=== PATIENT | female | born 1985 | race Caucasian/White ===

== ENCOUNTER 2018-01-02 10:16 | Emergency (ER) | payer MEDICAID ==
[~2018-01-02] VITALS: Ht 170.2 cm; Wt 120.0 kg
[2018-01-02] MEDS ORDERED: TRAM50TA2 PO (14:31)
[2018-01-02] MEDS ORDERED: NAPR-56 PO (14:31)
[2018-01-02] MEDS ORDERED: methylPREDNISolone acetate 80mg/ml inj**IM only IM ONE (14:35)
[2018-01-02] MEDS ORDERED: ketorolac trometh. 30mg/ml inj. IM ONE (14:35)
[2018-01-02] MEDS ORDERED: dexamethasone sod phosphate 10mg/ml inj IM STA (15:24)
[2018-01-02 15:51] VITALS: BP 146/72
== END 2018-01-02 15:58 | disposition home or self-care (01) ==
LOC: ER 10:17
DX: G56.03 Carpal tunnel syndrome, bilateral upper limbs (principal); Z79.899 Other long term (current) drug therapy
CPT/HCPCS: 96372; 99284; J1100; J1885; J1040

== ENCOUNTER 2018-05-06 13:01 | Emergency (ER) | payer MEDICAID | END 2018-05-06 16:02 | disposition left against medical advice (07) | LOC: ER 13:03 | DX: F41.9 Anxiety disorder, unspecified (principal); R45.4 Irritability and anger | CPT/HCPCS: 99283 ==

== ENCOUNTER 2018-08-07 19:29 | Emergency (ER) | payer MEDICAID ==
[~2018-08-07] VITALS: Ht 170.2 cm; Wt 107.3 kg
[2018-08-07] MEDS ORDERED: ibuprofen tablet 400 MG TABLET PO ONE (21:30)
[2018-08-07 21:36] VITALS: BP 138/72
== END 2018-08-07 21:39 | disposition home or self-care (01) ==
LOC: ER 19:30
DX: S93.402A Sprain of unspecified ligament of left ankle, initial encounter (principal); W22.8XXA Striking against or struck by other objects, initial encounter; Y93.89 Activity, other specified; Y92.89 Other specified places as the place of occurrence of the external cause; Y99.8 Other external cause status
CPT/HCPCS: 73610; 99284

== ENCOUNTER 2018-10-30 12:37 | Emergency (ER) | payer MEDICAID ==
[~2018-10-30] VITALS: Ht 170.2 cm; Wt 102.0 kg
--- NOTE | 2018-10-30 12:59 | NUR ---
PT WAS ESCORTED BY SECURITY AND LABEL CUTTER BACK TO ER OVERFLOW AND PLACED IN ROOM 20, PT WAS UPSET AND CRYING, PT HAS A CRISIS CLINITIAN WITH HER
[2018-10-30] MEDS ORDERED: quetiapine 100mg tablet PO ONE (13:20)
[2018-10-30] MEDS ORDERED: LORazepam 2 mg/ml vial IM ONE (13:20)
--- NOTE | 2018-10-30 13:21 | NUR ---
LAB ISWITH PT DRAWING BLOOD, PT IS CO OPERATIVE BUT RANDOMLY HYSTERICALLY CRYING AND CURSING
[2018-10-30 13:35] LABS: BASOPHILS % (AUTO) 0.3 % (0-1); EOSINOPHILS # (AUTO) 0.1 X10'3 (0-0.9); HEMATOCRIT 46.8 % (35.0-45.0); HEMOGLOBIN 15.4 g/dl (12.0-16.0); LYMPHOCYTES # (AUTO) 2.7 X10'3 (1.1-4.8); LYMPHOCYTES % (AUTO) 20.7 % (21-51); MEAN CORPUSCULAR HEMOGLOBIN 28.5 PG (27.0-31.0); MEAN CORPUSCULAR VOLUME 86.4 FL (78-98); MEAN PLATELET VOLUME 8.6 FL (7.4-10.4); MONOCYTES # (AUTO) 0.4 X10'3 (0-0.9); MONOCYTES % (AUTO) 3.4 % (2-12); NEUTROPHILS # (AUTO) 9.7 X10'3 (1.8-7.7); NEUTROPHILS % (AUTO) 74.6 % (42-75); PLATELET COUNT 386 X10'3 (140-440); RED BLOOD COUNT 5.41 X10'6 (4.20-5.60); RED CELL DISTRIBUTION WIDTH 14.9 % (11.5-14.5); WHITE BLOOD COUNT 12.9 X10'3 (4.5-11.0)
[2018-10-30 13:53] LABS: ALANINE AMINOTRANSFERASE 23 U/L (12-78); ALBUMIN 3.7 G/DL (3.4-5.0); ALBUMIN/GLOBULIN RATIO 0.8 (1.1-1.5); ALKALINE PHOSPHATASE 90 IU/L (46-116); ANION GAP 14 (8-16); ASPARTATE AMINO TRANSFERASE 13 U/L (10-37); BILIRUBIN,TOTAL 0.4 MG/DL (0.1-1.0); BLOOD UREA NITROGEN 12 MG/DL (7-18); CHLORIDE 101 MMOL/L (99-107); GLUCOSE 87 MG/DL (70-104); POTASSIUM 4.2 MMOL/L (3.5-5.1); SODIUM 137 MMOL/L (135-145); TOTAL CARBON DIOXIDE 21.8 MMOL/L (24-32); TOTAL PROTEIN 8.4 G/DL (6.4-8.2); eGFR 82 ML/MIN
[2018-10-30 14:02] LABS: ETHANOL < 0.010 GM/DL (0.0-0.010)
[2018-10-30] MEDS ORDERED: buprenorphine/naloxone 8mg/2mg SL tablet SL PRN (14:05)
[2018-10-30] MEDS ORDERED: diphenhydrAMINE 50 mg/ml inj IM ONE (14:05)
[2018-10-30] MEDS ORDERED: haloperidol lactate 5mg/ml inj IM ONE (14:05)
[2018-10-30] MEDS ORDERED: nicotine 21mg patch - 24 hr TD ONE (14:20)
[2018-10-30] MEDS ORDERED: LAMO25TA PO (15:03)
[2018-10-30] MEDS ORDERED: ARIP2TAB37 PO (15:03)
[2018-10-30 15:18] LABS: CLARITY,URINE CLOUDY (Clear); COLOR,URINE YELLOW (Yellow); GLUCOSE, URINE NEGATIVE (Neg); KETONES,URINE TRACE mg/dl (Neg); LEUKOCYTE ESTERASE ,URINE LARGE (Neg); NITRITES, URINE NEGATIVE (Neg); OCCULT BLOOD,URINE NEGATIVE (Neg); PH,URINE 6.5 (4.8-8.0); PROTEIN,URINE NEGATIVE (Neg); UROBILINOGEN,URINE 0.2 E.U/dL (0.2-1.0)
[2018-10-30 15:19] LABS: UA COLLECTION TYPE CLN CATCH MIDSTREAM; URINE HCG NEGATIVE (NEG)
[2018-10-30 15:27] LABS: SQUAMOUS EPITHELIAL CELL,UR MANY /LPF (FEW); URINE AMPHETAMINE SCREEN NEGATIVE (Neg); URINE BARBITUATE SCREEN NEGATIVE (Neg); URINE BENZODIAZEPINES SCREEN NEGATIVE (Neg); URINE CANNABINOID SCREEN NEGATIVE (Neg); URINE COCAINE SCREEN NEGATIVE (Neg); URINE METHADONE SCREEN NEGATIVE (Neg); URINE OPIATE SCREEN NEGATIVE (Neg); URINE PHENCYCLIDINE SCREEN NEGATIVE (Neg)
[2018-10-30 15:28] LABS: TRICHOMONAS,URINE MANY /HPF (NEGATIVE)
--- NOTE | 2018-10-30 15:30 | NUR ---
1350 Pt refusing to change into green scrubs and wants to go outside to smoke. Pt keeps crying and yelling for the voices to stop. Security at bedside trying to assist pt in changing clothes when pt became violent and lashed out at security physically and verbally. Security was able to get pt onto the bed. Provider asked for order to help calm pt. Pt given meds at 1416. Pt restrained with 4 point restraints until she was calm. Order obtained and documentation completed for restraints. Pt is now sleeping.
[2018-10-30 15:31] LABS: WBC,URINE 50-100 /HPF (0-4)
[2018-10-30 15:32] LABS: BACTERIA,URINE 1+ /HPF (Neg); RBC,URINE 0-2 /HPF (0-2)
--- NOTE | 2018-10-30 20:16 | NUR ---
Patient awoke, ate dinner, ambulated to the bathroom. She then returned to bed and went directly to sleep.
[2018-10-30] MEDS: lamoTRIgine 25mg tablet PO SCH (21:56)
--- NOTE | 2018-10-30 21:59 | NUR ---
Patient awakens, takes Rx med and immediately returns to sleep. Patient is low fowlers in bed, in view of nursing station. Q15 minute rounding also being done for patient safety.
--- NOTE | 2018-10-31 06:55 | NUR ---
[facility] consultation initiated.
--- NOTE | 2018-10-31 07:47 | NUR ---
Patient in bed sleeping appears comfortable. Tele Psych has been called and is set up infront of patient
--- NOTE | 2018-10-31 08:20 | NUR ---
PATIENT AMBULATED TO BATHROOM
[2018-10-31] MEDS ORDERED: quetiapine 100mg tablet PO STA (08:30)
[2018-10-31] MEDS ORDERED: LORazepam 1 MG tablet PO PRN (09:50)
--- NOTE | 2018-10-31 09:55 | NUR ---
PATIENT HAD HER TEL PSYCH AND THE PRN MEDICATIONS HAVE BEEN ORDERED PER MD. PC INSTALLATION ENGINEER ALONZO LYON [phone] CHILDREN ARE IN FOSTER CARE. PATIENT IS AWARE HER CHILDREN ARE SAFE
[2018-10-31] MEDS: ziprasidone 20mg capsule PO PRN (10:03)
--- NOTE | 2018-10-31 11:13 | NUR ---
PATIENT IS RESTING IN BED. [phone] LUISANA MOTHER [phone] MANOJ FATHER
--- NOTE | 2018-10-31 12:50 | NUR ---
PATIENT WOKE AND STARTED SHOUTING ABOUT HER KIDS AND YELLING" I WANT MY STUFF! I AM LEAVING!, WHERE ARE MY KIDS". SECURITY WAS CALLED AND PATIENT WAS MEDICATED.
[2018-10-31] MEDS: LORazepam 2 mg/ml vial IM PRN (12:51)
--- NOTE | 2018-10-31 13:04 | NUR ---
PATIENT'S MOTHER CALLED AND INQUIRED IF SHE WOULD BE ABLE TO VISIT. PATIENT STATES SHE WILL BE WILLING TO SPEAK AND VISIT WITH HER MOTHER WHEN SHE ARRIVES.
--- NOTE | 2018-10-31 13:13 | NUR ---
*CORRECTION* MOTHER'S NUMBER IS: [phone]. HER NAME IS
--- NOTE | 2018-10-31 13:35 | NUR ---
PATIENT IN BED SLEEPING, APPEARS COMFORTABLE. TALKING IN HER SLEF IN HER SLEEP
--- NOTE | 2018-10-31 14:48 | NUR ---
PATIENT IN BED SLEEPING, APPEARS COMFORTABLE, I WILL CONTINUE TO MONITOR
--- NOTE | 2018-10-31 16:15 | NUR ---
PATIENTS MOTHER CAME TO THE ED I MET HER IN THE LOBBY. SHE WAS CONCERNED ABOUT THE PATIENTS STATUS. I ASSURED HER THE PATIENT IS SLEEPING AT THIS TIME. I TOLD HER THAT HER VISIT MAY UPSET THE PATIENT BECAUSE SHE IS CONCERNED ABOUT HER CHILDREN. THE MOTHER AGREED THAT THE PHONE CONVERSATION DIDNT GO WELL EARLIER AND SHE WANTS THE PATIENT TO CONTINUE TO REST. I GAVE THE MOTHER OUR PHONE NUMBER AND TOLD HER SHE COULD CALL AND CHECK ON THE PATIENT. WHEN THE PATIENT WAKES I WILL NOTIFY HER THAT HER MOTHER STOPPED BY.
--- NOTE | 2018-10-31 17:00 | NUR ---
I RECIEVED A PHONE CALL FROM PRIYA AT [facility]. THEY WILL BE CALLING BACK AFTER THEY SPEAK WITH THE MD.
[2018-10-31] MEDS: lamoTRIgine 25mg tablet PO SCH (20:32)
--- NOTE | 2018-10-31 23:29 | NUR ---
NURSE TO NURSE REPORT TO CHRISTINE AT [facility].
--- NOTE | 2018-11-01 07:30 | NUR ---
Patient is sleeping supine in bed. Respirations are nonlabored.
--- NOTE | 2018-11-01 09:52 | NUR ---
Patient awoke and ate breakfast. Awakened her for a.m. meds and patient started yelling. When can I leave, I want my keys... Patient now crying in bed. Will continue to monitor.
[2018-11-01] MEDS: LORazepam 0.5 MG tablet PO PRN ×2 (10:25→20:03)
[2018-11-01] MEDS: ziprasidone 20mg capsule PO PRN (10:25)
--- NOTE | 2018-11-01 10:29 | NUR ---
Patient became loud on unit stating she needed to leave and would not go back to room. Security called. Medicated with 2 mg Ativan and 20 mg Geodon. Patient talking to female physical security manager, crying softly. Will continue to monitor.
--- NOTE | 2018-11-01 12:20 | NUR ---
Cait became aggitated and was yelling at bed 25. security called. she stated "I want to leave this fucking place and go outside". IM ativan 2mg given to pt. elopement band placed on left ankle.
[2018-11-01] MEDS: LORazepam 2 mg/ml vial IM PRN (12:24)
--- NOTE | 2018-11-01 16:14 | NUR ---
Patient has been sleeping all day except for two outbursts, and meals. Patient awake now talking to herself. Will continue to monitor.
--- NOTE | 2018-11-01 17:21 | NUR ---
Patient awakened from sleep in an agitated mood. She was starting to targeting NA, direct stare, coming too close in proximity, blaming NA. Security called and patient went back to bed without further incident.
--- NOTE | 2018-11-01 18:28 | NUR ---
Report rec'd, [facility]. Eating dinner currently.
--- NOTE | 2018-11-01 19:16 | NUR ---
Resting in bed, mumbling at times. Requesting her purse. Ensured pt it was safe. Will monitor.
[2018-11-01] MEDS: lamoTRIgine 25mg tablet PO SCH (20:01)
--- NOTE | 2018-11-01 20:03 | NUR ---
Meds administered without issues. Patient requested her PRN Ativan. Calm and cooperative at this time. Requested information and update on her POC, usual and customary course endorsed to patient.
--- NOTE | 2018-11-01 21:06 | NUR ---
Patient resting in bed with eyes closed, resp are even and unlabored, appearing to sleep. Will continue to monitor.
--- NOTE | 2018-11-01 21:58 | NUR ---
Awake in the bed, agitated with the extra stimuli of a new patient to the unit. Attempts to calm the environment. Will monitor.
--- NOTE | 2018-11-01 22:56 | NUR ---
Laying in bed, eyes closed, resp are even and unlabored, appears to sleep. Will continue to monitor.
--- NOTE | 2018-11-01 23:56 | NUR ---
Laying in bed, eyes closed, resp are even and unlabored, appears to sleep. Will continue to monitor.
--- NOTE | 2018-11-02 01:27 | NUR ---
Resting in bed, appearing to sleep with even and unlabored respirations. No new concerns or issues noted, will continue to monitor.
--- NOTE | 2018-11-02 02:43 | NUR ---
Resting in bed, appearing to sleep, will monitor.
--- NOTE | 2018-11-02 04:22 | NUR ---
Resting in bed, appearing to sleep, will monitor.
--- NOTE | 2018-11-02 05:00 | NUR ---
Resting in bed, vitals taken, no new concerns.
--- NOTE | 2018-11-02 07:19 | NUR ---
pt ambulated to the bathroom no distress noted.
[2018-11-02] MEDS: LORazepam 0.5 MG tablet PO PRN ×2 (07:49→16:43)
[2018-11-02] MEDS ORDERED: nicotine 21mg patch - 24 hr TD ONE (08:15)
--- NOTE | 2018-11-02 14:00 | NUR ---
[facility] at bedside speaking to pt and answering questions.
--- NOTE | 2018-11-02 16:47 | NUR ---
pt became restless and was pacing around nursing station. ativan prn given to pt.
--- NOTE | 2018-11-02 17:24 | NUR ---
laying in bed on right side, no distress noted.
--- NOTE | 2018-11-02 18:06 | NUR ---
Received report from VERONICA Henry. Patient awake and alert on room air, visitors at bedside. In no apparent distress. Will continue to monitor.
--- NOTE | 2018-11-02 19:00 | NUR ---
Patient asked for sleeping pill. Will check with MD and get back to her.
[2018-11-02] MEDS ORDERED: diphenhydrAMINE 25mg capsule PO ONE (19:15)
--- NOTE | 2018-11-02 19:30 | NUR ---
Administered Benedryl 50mg PO to patient per MD order.
[2018-11-02] MEDS: lamoTRIgine 25mg tablet PO SCH (20:12)
--- NOTE | 2018-11-02 20:35 | NUR ---
Patient up to bathroom
--- NOTE | 2018-11-02 22:06 | NUR ---
Patient resting comfortably with 16 even and unlabored respirations on room air.
--- NOTE | 2018-11-02 23:43 | NUR ---
Patient asked for saltine crackers. Given. Now, back in bed.
--- NOTE | 2018-11-03 02:55 | NUR ---
Patient up to bathroom. Requested for PRN ativan as she is feeling agitated; administered PRN ativan per MD order.
[2018-11-03] MEDS: LORazepam 0.5 MG tablet PO PRN (03:03)
--- NOTE | 2018-11-03 03:57 | NUR ---
Patient laying supine with eyes closed, in no apparent distress.
--- NOTE | 2018-11-03 04:54 | NUR ---
Patient is resting comfortably with eyes closed, 16 even and unlabored respirations. In no apparent distress.
[2018-11-03 07:07] LABS: CLARITY,URINE CLEAR (Clear); COLOR,URINE YELLOW (Yellow); GLUCOSE, URINE NEGATIVE (Neg); KETONES,URINE NEGATIVE (Neg); LEUKOCYTE ESTERASE ,URINE NEGATIVE (Neg); NITRITES, URINE NEGATIVE (Neg); OCCULT BLOOD,URINE LARGE (Neg); PROTEIN,URINE TRACE mg/dl (Neg)
[2018-11-03 07:08] LABS: UA COLLECTION TYPE CLN CATCH MIDSTREAM
[2018-11-03 07:19] LABS: BACTERIA,URINE FEW /HPF (Neg); MUCUS STRANDS MODERATE /LPF (Neg); SQUAMOUS EPITHELIAL CELL,UR MODERATE /LPF (FEW); WBC,URINE 0-4 /HPF (0-4)
--- NOTE | 2018-11-03 08:00 | NUR ---
Patient sitting at bedside eating breakfast.
[2018-11-03] MEDS ORDERED: chlordiazePOXIDE 25mg capsule PO ONE (09:10)
[2018-11-03] MEDS: ziprasidone 20mg capsule PO PRN (09:27)
[2018-11-03] MEDS: LORazepam 2 mg/ml vial IM PRN (09:27)
--- NOTE | 2018-11-03 12:17 | NUR ---
Link is here with a lady to see and talk with pt.
[2018-11-03] MEDS ORDERED: LORazepam 2 mg/ml vial IM ONE (17:10)
--- NOTE | 2018-11-03 17:45 | NUR ---
pt's mom's phone number is: [phone] and her father: [phone]
--- NOTE | 2018-11-03 17:52 | NUR ---
Patient began the day stating "My 5150 is up today. I need to get out of here. I live in [place]. I have animals locked in my house. I need to find my kids. I don't know where they are. You guys better let me go." Presents as hyperverbal and hyperagitated. Most likely in manic stage of her illness. Patient has not been using her medication as prescribed. "My house is a mess. A bad mess. My pills may be in there. I don't know, I can't find them." Has no idea how long she has been off her medications. States "What you are looking at is me. This is how I am. Take it or leave it." Remedios from [facility] here to evaluate patient. Determined patient was unstable at present and met criteria for new 5150. Patient accepted information poorly. Yelling at staff. Attemping to leave the unit. Medicated with Ativan 2 mg. IM times two to decrease agitation and increase comfort.
--- NOTE | 2018-11-03 18:00 | NUR ---
Report received from [place].Pt. was resting.
--- NOTE | 2018-11-03 19:00 | NUR ---
Pt.had dinner ,she is resting with no complaines.
[2018-11-03] MEDS: lamoTRIgine 25mg tablet PO SCH (19:57)
[2018-11-03] MEDS: quetiapine 100mg tablet PO SCH (19:57)
[2018-11-03] MEDS: ziprasidone 20mg capsule PO SCH (19:57)
[2018-11-03] MEDS ORDERED: ziprasidone 20mg capsule PO SCH (20:00)
--- NOTE | 2018-11-03 20:00 | NUR ---
Pt. took ner night med. resting in bed.
--- NOTE | 2018-11-03 22:00 | NUR ---
Pt. is sleeping comfortable.
--- NOTE | 2018-11-03 23:00 | NUR ---
Pt. is sleeping.
--- NOTE | 2018-11-04 01:02 | NUR ---
Pt. was comfortable ,sleeping in her back.
--- NOTE | 2018-11-04 01:26 | NUR ---
Pt. up to the bathroom.
--- NOTE | 2018-11-04 02:38 | NUR ---
Pt. up to the bathroom.
--- NOTE | 2018-11-04 04:17 | NUR ---
Pt. went to the bathroom.
--- NOTE | 2018-11-04 05:31 | NUR ---
Pt. is resting in bed ,awaken for Vitals.
--- NOTE | 2018-11-04 06:27 | NUR ---
Report given to VERONICA Nixon
--- NOTE | 2018-11-04 06:28 | NUR ---
Report given to VERONICA Acevedo
--- NOTE | 2018-11-04 07:05 | NUR ---
Adenike kidd in [facility] - 11/04/18 at 0706 by YURY report from VERONICA Yancey , pt is resting quietly in bed no s/s of distr4
[2018-11-04] MEDS: quetiapine 100mg tablet PO SCH ×2 (07:54→21:00)
[2018-11-04] MEDS: ziprasidone 20mg capsule PO SCH ×2 (07:55→21:00)
--- NOTE | 2018-11-04 08:31 | NUR ---
Pt woke up very angry yelling out that we are keeping her here against her will , pt given breakfast and coffee per pt request
[2018-11-04] MEDS: LORazepam 2 mg/ml vial IM PRN (09:26)
--- NOTE | 2018-11-04 09:29 | NUR ---
Patient asked for the phone and VERONICA Abdalla walked it over and asked her if she wanted me to plug it in or would she like to do it. She said "you do it". RN attempted to plug phone in but patient got upset and said she would do it herself. RN allowed patient to plug it in and then patient threw the phone as RN walked away. Patient started cussing and stating "we won't let her use the BR." Patient attempted to leave and RN and tech blocked her. Security was called. Patient continued cussing at the staff. RN gave patient and I.M. injection of Ativan. Patient attempting to get out of bed and told to go back to bed. Patient states she needs to use the BR and we aren't allowing her to. Security told her she never said she needed to use the BR and allowed her to go. Patient then went back to her bed and sat at her bed cussing at staff. Patient eventually laid down in the bed. Continue to monitor.
[2018-11-04] MEDS ORDERED: haloperidol lactate 5mg/ml inj IM ONE (09:40)
[2018-11-04] MEDS ORDERED: LORazepam 2 mg/ml vial IV ONE (09:40)
--- NOTE | 2018-11-04 11:47 | NUR ---
pt resting quietly
--- NOTE | 2018-11-04 13:57 | NUR ---
PT SHOWING SIGNS OF AGITATION AGAIN WILL CONTINUE TO MONITOR
--- NOTE | 2018-11-04 14:30 | NUR ---
PT BEGAN VERY AGITIATED AND STARTED VERBALLY THREATENING STAFF IM NESTORL WAS ADMINSTERED SECURITY WAS AT BEDSIDE ALSO TO HELP WITH ADMINISTRATION. PT YELLING AND REQUESTING TO TALK TO NURSING PLSQL DEVELOPER BONNIE CALLED. PT ALSO STATES WE ARE KILLING HER DOG BECAUSE ITS AT HER HOME WITHOUT SOMEONE TO TAKE CARE OF THE DOG I EXPLAINED THAT I TALKED TO HER MOM THIS MORNING AND SHE WAS DRIVING TO THE HOUSE AND PICKING UP THE DOG THIS AM.
--- NOTE | 2018-11-04 18:10 | NUR ---
Report given to VERONICA Feliz pt eating dinner VS stable
--- NOTE | 2018-11-04 18:26 | NUR ---
Assumed care of pt. Pt laying in bed sleeping. RR even and unlabored no s/s distress.
--- NOTE | 2018-11-04 20:08 | NUR ---
Pt is laying in bed sleeping, rr even and unlabored no s/s distres.
[2018-11-04] MEDS: lamoTRIgine 25mg tablet PO SCH (21:00)
--- NOTE | 2018-11-04 21:19 | NUR ---
woke pt for evening meds, pt was cooperative and pleasant, went back to sleep.
--- NOTE | 2018-11-05 00:03 | NUR ---
PT UP TO USE THE RESTROOM AND RETURNED TO BED.
--- NOTE | 2018-11-05 02:11 | NUR ---
pT IS LAYING ON HER RIGHT SIDE, UNDER THE BLANKETS, SLEEPING. RR EVEN AND UNLABORED NO S/S DISTRESS.
--- NOTE | 2018-11-05 04:31 | NUR ---
PT UP TO USE THE RESTROOM AND RETURNED TO BED. SHE IS LAYING ON HER RIGHT SIDE, EYES CLOSED.
--- NOTE | 2018-11-05 06:30 | NUR ---
Asleep upon change of shift observation. Breathing even and unlabored. Undisturbed at this time.
[2018-11-05] MEDS: quetiapine 100mg tablet PO SCH ×2 (07:28→20:00)
[2018-11-05] MEDS: ziprasidone 20mg capsule PO SCH ×2 (07:29→20:00)
--- NOTE | 2018-11-05 08:10 | NUR ---
Awakened for breakfast and morning medications. Patient presents as angry, scared and agitated. States she wants her purse, shoes and keys "to get myself out of here. You guys just don't get it. I've lost everything. My kids! Where are my kids? I'll tell you where? They're gone. And you don't care. I've lost my pets, my home. It's all gone and I can't do anything about it." "Go ahead and just medicate me. That's all you want to do." Unreceptive to comforting or staff intervention at this time.
--- NOTE | 2018-11-05 09:26 | NUR ---
Went to sleep after breakfast then awakened at this time yelling loudly at staff once again about needing to leave. Appears to be unable to control her impulsive behavior. Dr. Griffith in the vicinity and observed patient's behavior. Ordered medication for patient. Haldol 5 mg/Ativan 2 mg/Benadryl 50 mg IM administered as ordered without event.
[2018-11-05] MEDS ORDERED: LORazepam 2 mg/ml vial IM ONE (11:50)
[2018-11-05] MEDS ORDERED: diphenhydrAMINE 50 mg/ml inj IM ONE (11:50)
[2018-11-05] MEDS ORDERED: haloperidol lactate 5mg/ml inj IM ONE (11:50)
--- NOTE | 2018-11-05 12:45 | NUR ---
Awakened for lunch. Ate her meal. Got up to use the bathroom and returned to sleep.
--- NOTE | 2018-11-05 17:16 | NUR ---
Slept for the remainder of the day except to get up and use the bathroom. Woke up once and asked if she could walk around the hospital. Informed this would not be allowed. Patient then returned to sleep without event.
--- NOTE | 2018-11-05 18:35 | NUR ---
Katie is patients mother. Her phone number is [phone]
--- NOTE | 2018-11-05 19:09 | NUR ---
PT SLEEPING LAYING O HER RIGHT SIDE, RESPIRATIONS EVEN AND UNLABORED. NO DISTRESS NOTED AT THIS TIME.
--- NOTE | 2018-11-05 20:06 | NUR ---
Patient is sleeping quietly. In view of nursing station. Q15 minute rounding being done for patient safety.
[2018-11-05] MEDS: lamoTRIgine 25mg tablet PO SCH (21:00)
--- NOTE | 2018-11-06 03:20 | NUR ---
Patient remains sleeping, talks in her sleep. In view of nursing station. Q15 minute rounding for patient safety.
[2018-11-06] MEDS ORDERED: diphenhydrAMINE 50 mg/ml inj IM PRN (07:40)
[2018-11-06] MEDS ORDERED: haloperidol lactate 5mg/ml inj IM PRN (07:40)
--- NOTE | 2018-11-06 07:42 | NUR ---
PT IS AWAKE AND ASKING WHEN BREAKFAST IS COMING, INFORMED PT 0800, GAVE PT YOGURT, APPLESAUCE AND MARIANNA CRACKERS.
--- NOTE | 2018-11-06 07:46 | NUR ---
PT IS ASKING FOR PLAN FOR EVALUATION AND DISCHARGE, PT CALM AND COOPERATIVE, PT STATES SHE FEELS LIKE SHE CAN LEAVE, STATES SHE HAS BEEN TAKING HER MEDICATIONS FOR AWHILE, INFORMED PT I WILL DISCUSS PLAN WITH [facility]
[2018-11-06] MEDS: quetiapine 100mg tablet PO SCH (08:01)
[2018-11-06] MEDS: ziprasidone 20mg capsule PO SCH (08:01)
[2018-11-06] MEDS: LORazepam 0.5 MG tablet PO PRN (08:12)
--- NOTE | 2018-11-06 08:20 | NUR ---
MEDICATED PT WITH MORNING MEDICATIONS AND PRN ATIVAN PER ORDERS, ALIS WITH [facility] AT BEDSIDE TO REEVALUATE THE PT AT THIS TIME.
--- NOTE | 2018-11-06 08:42 | NUR ---
ALIS WITH [facility] RENEWING 5150 AT THIS TIME, SHE DISCUSSED PLACEMENT ISSUES DUE TO MEDICATION HALDOL, BENADRYL, ATIVAN DAILY, CALLED SOC TELEPSYCH TO HAVE DOCTOR CALL ME TO DISCUSS INCREASING CURRENT MEDICATIONS OR ADDING MEDICATION DUE TO PT STILL BEING EMOTIONAL, LABILE AND EASILY AGITATED OF YESTERDAY AFTERNOON.
--- NOTE | 2018-11-06 09:02 | NUR ---
PT IS CONCERNED BECAUSE HER NNEKA POPE IS PARKED IN FRONT [facility], CALLED [phone] SPOKE WITH ESMER ONE OF THE INVESTIGATORS AND SHE INFORMED ME THE CAR IS STILL THERE, HAS NO TICKET AND IS NOT PARKED IN A LIMITED PARKING AREA, SHE SAID SHE WILL KEEP AN EYE ON THE CAR AND THE ONLY ISSUE WOULD ARISE IF SOMEONE REPORTED THE CAR ABANDONED IT MAY BE TOWED, PT INFORMED CAR IS SAFE AND STILL WHERE SHE LEFT IT, SHE HAS NOONE THAT CAN MOVE THE CAR AND ASKED IF WE COULD ARRANGE FOR THE CAR TO BE MOVED, INFORMED PT I WOULD CHECK TO SEE IF THERE ARE ANY OPTIONS AVAILABLE TO SECURE PT CAR.
--- NOTE | 2018-11-06 09:39 | NUR ---
RECEIVED CALL FROM DR RONDON SOC, GAVE REPORT AND HISTORY, DOCTOR TO TALK WITH PT VIA TELEPSYCH MONITOR NOW IN PRIVATE ROOM, LUCRECIA HAND GLASS CUTTER IN ROOM WITH PT
--- NOTE | 2018-11-06 09:52 | NUR ---
RECEIVED CALL FROM DR RONDON SHE WILL COMPLETE REPORT AND FAX TO ME, HER PLAN IS TO DISCONTINUE GEODON, SEROQUEL AND ABILIFY, AND TO START RISPERDAL, ATIVAN AND COGENTIN SCHEDULED MEDICATIONS, WILL UPDATE MED REC AND HAVE DR IBANEZ SIGN AND SEND TO PHARMACY
--- NOTE | 2018-11-06 09:52 | NUR ---
PT WAS RE TELPSYCHED AND IS NOW BACK IN BED, CALM, ON LEFT SIDE, [facility] RE: [facility]'S [facility], SHE SAYS SHE WILL CALL [facility] AND SEE WHAT CAN BE DONE, PT LIVES IN [place].
--- NOTE | 2018-11-06 09:58 | NUR ---
ALIS [facility] STATES SHE CALLED THE DA'S OFFICE, CAR IS STILL THERE, IN NO DANGER OF BEING TOWED, APPARENTLY MOTHER OF PT HAS HER KEYS...WILL DISCUSS WITH PT TO SEE IF HER MOM CAN COME AND GET THE CAR
[2018-11-06 10:08] VITALS: BP 107/61
--- NOTE | 2018-11-06 10:45 | NUR ---
PT IS IN BED RESTING SUPINE, NO S/S OF DISTRESS NOTED
[2018-11-06] MEDS ORDERED: BENZ1TAB7 PO (11:02)
[2018-11-06] MEDS ORDERED: LORA0.5T PO (11:02)
[2018-11-06] MEDS ORDERED: HALO100A2 IM (11:02)
[2018-11-06] MEDS ORDERED: DIPH-518 IM (11:02)
[2018-11-06] MEDS ORDERED: LORA2VIA30 IM (11:02)
[2018-11-06] MEDS ORDERED: RISP1TAB13 PO (11:02)
[2018-11-06] MEDS ORDERED: benztropine 1mg tablet PO SCH (12:04)
[2018-11-06] MEDS ORDERED: LORazepam 0.5 MG tablet PO PRN (12:10)
--- NOTE | 2018-11-06 12:13 | NUR ---
woke pt for medications, she was cooperative, no agitation noted
--- NOTE | 2018-11-06 12:41 | NUR ---
spoke to Jovita at [facility], she took a nurse to nurse report, will get back to me when she has an answer as to acceptance there
--- NOTE | 2018-11-06 12:57 | NUR ---
IN BED ON RIGHT SIDE, SLEEPING. NO S/S OF DISTRESS, EQUAL, NON LABORED BREATHING
--- NOTE | 2018-11-06 13:37 | NUR ---
pt is supine in bed no s/s of distress noted, equal, non labored breathing
--- NOTE | 2018-11-06 14:33 | NUR ---
pt just up to the bathroom, she is back in bed, no s/s of agitation
--- NOTE | 2018-11-06 15:18 | NUR ---
RCVD A CALL FROM JORDAN AT THE [place] OFFICE, PT IS BEING ACCEPTED AT THE [facility], PENDING A DISCHARGE TOMORROW, THEY ARE WONDERING IF SHE CAN GET A B52 PRIOR TO TRANSPORT TO EASE TRANSFER, I TOLD HER THAT WE WOULD HAVE TO ADDRESS THAT WITH THE PROVIDER TOMORROW, IF IT IS NEEDED, SHE HAS BEEN CALM FOR MOST OF THE DAY TODAY.
--- NOTE | 2018-11-06 15:42 | NUR ---
PT IS IN BED RESTING ON HER LEFT SIDE, NO S/S OF DISTRESS NOTED, EQUIL, REGULAR, BREATHING
[2018-11-06] MEDS ORDERED: risperiDONE 0.5mg tablet PO SCH (20:00)
== END 2018-11-06 16:10 ==
LOC: ER 12:37
DX: F29 Unspecified psychosis not due to a substance or known physiological condition (principal); R51 Headache; F41.9 Anxiety disorder, unspecified; F31.9 Bipolar disorder, unspecified; Z79.899 Other long term (current) drug therapy
CPT/HCPCS: 36415; 80053; 80305; 80320; 81001; 81025; 84443; 85025; 96372; 99285; J1200; J1630; J2060

== ENCOUNTER 2018-11-06 14:30 | Inpatient (IN) | payer MEDICAID | END 2018-11-09 13:35 | disposition home or self-care (01) | LOC: ADULT MH 14:30 ==

== ENCOUNTER 2018-12-17 17:04 | Emergency (ER) | payer MEDICAID ==
[~2018-12-17] VITALS: Ht 170.2 cm; Wt 98.3 kg
[~2018-12-17 17:04] MED LIST: COL100C PO; LAMO25TA5 PO; LORA1TAB PO; NICO-687 TD; QUET100T33 PO
[2018-12-17 17:22] VITALS: BP 117/73
== END 2018-12-17 18:12 | disposition home or self-care (01) ==
LOC: ER 17:04
DX: F15.10 Other stimulant abuse, uncomplicated (principal); F41.9 Anxiety disorder, unspecified; F31.9 Bipolar disorder, unspecified; F17.200 Nicotine dependence, unspecified, uncomplicated; Z02.89 Encounter for other administrative examinations; Z79.899 Other long term (current) drug therapy
CPT/HCPCS: 99281

== ENCOUNTER 2019-05-08 16:30 | Emergency (ER) | payer SELFPAY ==
[~2019-05-08] VITALS: Ht 170.2 cm; Wt 100.0 kg
[2019-05-08 17:37] VITALS: BP 147/89
== END 2019-05-08 20:13 | disposition home or self-care (01) ==
LOC: ER 16:31
DX: F15.10 Other stimulant abuse, uncomplicated (principal); F10.10 Alcohol abuse, uncomplicated; F41.9 Anxiety disorder, unspecified; F31.9 Bipolar disorder, unspecified; Z79.899 Other long term (current) drug therapy
CPT/HCPCS: 99281

== ENCOUNTER 2019-07-04 15:25 | Emergency (ER) | payer MEDICAID ==
[~2019-07-04] VITALS: Ht 170.2 cm; Wt 108.0 kg
[2019-07-04 16:14] LABS: BASOPHILS # (AUTO) 0.1 X10'3 (0-0.2); BASOPHILS % (AUTO) 0.9 % (0-1); EOSINOPHILS # (AUTO) 0.1 X10'3 (0-0.9); EOSINOPHILS % (AUTO) 1.3 % (0-6); HEMATOCRIT 43.6 % (35.0-45.0); HEMOGLOBIN 14.5 g/dl (12.0-16.0); LYMPHOCYTES # (AUTO) 3.4 X10'3 (1.1-4.8); LYMPHOCYTES % (AUTO) 30.4 % (21-51); MEAN CORPUSCULAR HEMOGLOBIN 29.9 PG (27.0-31.0); MEAN CORPUSCULAR HGB CONC 33.2 g/dL (33.0-36.5); MEAN CORPUSCULAR VOLUME 90.2 FL (78-98); MEAN PLATELET VOLUME 8.2 FL (7.4-10.4); MONOCYTES # (AUTO) 0.6 X10'3 (0-0.9); MONOCYTES % (AUTO) 5.3 % (2-12); NEUTROPHILS % (AUTO) 62.1 % (42-75); PLATELET COUNT 394 X10'3 (140-440); RED BLOOD COUNT 4.83 X10'6 (4.20-5.60); RED CELL DISTRIBUTION WIDTH 13.3 % (11.5-14.5); WHITE BLOOD COUNT 11.3 X10'3 (4.5-11.0)
[2019-07-04] MEDS ORDERED: ibuprofen tablet 400 MG TABLET PO ONE (16:25)
[2019-07-04 16:26] LABS: ALANINE AMINOTRANSFERASE 22 U/L (12-78); ALBUMIN 3.5 G/DL (3.4-5.0); ALBUMIN/GLOBULIN RATIO 0.8 (1.1-1.5); ALKALINE PHOSPHATASE 86 IU/L (46-116); ANION GAP 11 (8-16); ASPARTATE AMINO TRANSFERASE 15 U/L (10-37); BILIRUBIN,TOTAL 0.2 MG/DL (0.1-1.0); BLOOD UREA NITROGEN 10 MG/DL (7-18); BUN/CREATININE RATIO 10.4 (6.6-38.0); CALCIUM 9.5 MG/DL (8.5-10.1); CHLORIDE 103 MMOL/L (99-107); CREATININE 0.96 MG/DL (0.40-0.90); GLUCOSE 135 MG/DL (70-104); POTASSIUM 3.9 MMOL/L (3.5-5.1); SODIUM 139 MMOL/L (135-145); TOTAL CARBON DIOXIDE 24.7 MMOL/L (24-32); TOTAL PROTEIN 7.9 G/DL (6.4-8.2); eGFR 66 ML/MIN
[2019-07-04] MEDS ORDERED: ibuprofen 200mg tablet PO ONE (16:30)
[2019-07-04 17:39] LABS: URINE HCG NEGATIVE (NEG)
[2019-07-04 17:50] LABS: CLARITY,URINE CLOUDY (Clear); COLOR,URINE YELLOW (Yellow); GLUCOSE, URINE NEGATIVE (Neg); KETONES,URINE NEGATIVE (Neg); LEUKOCYTE ESTERASE ,URINE TRACE (Neg); NITRITES, URINE NEGATIVE (Neg); OCCULT BLOOD,URINE NEGATIVE (Neg); PROTEIN,URINE NEGATIVE (Neg); UROBILINOGEN,URINE 0.2 E.U/dL (0.2-1.0)
[2019-07-04 17:51] LABS: UA COLLECTION TYPE CLN CATCH MIDSTREAM
[2019-07-04 18:02] LABS: BACTERIA,URINE NONE SEEN /HPF (Neg); RBC,URINE 0-2 /HPF (0-2); SQUAMOUS EPITHELIAL CELL,UR FEW /LPF (FEW); WBC,URINE 0-4 /HPF (0-4)
[2019-07-04] MEDS ORDERED: CEPH500C5 PO (18:08)
[2019-07-04] MEDS ORDERED: ONDA4TAB12 PO (18:08)
[2019-07-04] MEDS ORDERED: cephalexin 250mg capsule PO ONE (18:10)
[2019-07-04] MEDS ORDERED: ondansetron 4mg rapidly disintigrating tab PO ONE (18:10)
[2019-07-04 18:21] VITALS: BP 123/58
== END 2019-07-04 18:23 | disposition home or self-care (01) ==
LOC: ER 15:25
DX: N39.0 Urinary tract infection, site not specified (principal); F41.9 Anxiety disorder, unspecified; F31.9 Bipolar disorder, unspecified; Z98.890 Other specified postprocedural states; Z87.891 Personal history of nicotine dependence; Z79.899 Other long term (current) drug therapy
CPT/HCPCS: 36415; 80053; 81001; 81025; 85025; 85610; 87088; 99284

== ENCOUNTER 2020-04-19 15:07 | Emergency (ER) | payer MEDICAID ==
[~2020-04-19] VITALS: Ht 175.3 cm; Wt 150.0 kg
[~2020-04-19 15:07] MED LIST changes: +CEPH500C5 PO; +ONDA4TAB12 PO
[2020-04-19 16:06] VITALS: BP 132/80
== END 2020-04-19 16:09 | disposition home or self-care (01) ==
LOC: ER 15:08
DX: F15.10 Other stimulant abuse, uncomplicated (principal); F41.9 Anxiety disorder, unspecified; F31.9 Bipolar disorder, unspecified; F17.200 Nicotine dependence, unspecified, uncomplicated; Z13.89 Encounter for screening for other disorder; Z98.51 Tubal ligation status; Z98.890 Other specified postprocedural states; Z79.2 Long term (current) use of antibiotics; Z79.899 Other long term (current) drug therapy
CPT/HCPCS: 99281

== ENCOUNTER 2020-10-17 12:35 | Emergency (ER) | payer MEDICAID ==
[~2020-10-17] VITALS: Ht 170.2 cm; Wt 136.4 kg
[~2020-10-17 12:35] MED LIST changes: +ALBU6.7H9 INH; -CEPH500C5 PO
[2020-10-17 13:17] VITALS: BP_SYST 152
== END 2020-10-17 13:40 | disposition home or self-care (01) ==
LOC: ER 12:35
DX: U07.1 COVID-19 (principal); J02.9 Acute pharyngitis, unspecified; F15.90 Other stimulant use, unspecified, uncomplicated; Z79.899 Other long term (current) drug therapy; Z98.84 Bariatric surgery status
CPT/HCPCS: 36415; 87635; 99283

== ENCOUNTER 2020-10-30 15:51 | Emergency (ER) | payer MEDICAID ==
[~2020-10-30] VITALS: Ht 170.2 cm; Wt 143.2 kg
[2020-10-30 15:59] VITALS: BP 133/93
[2020-10-30] MEDS ORDERED: LIDOcaine 1% W/epiNEPHrine 1:200,000 10ml vial IJ ONE (17:10)
[2020-10-30] MEDS ORDERED: SULF1TAB49 PO (18:00)
== END 2020-10-30 18:15 | disposition home or self-care (01) ==
LOC: ER 15:51
DX: L02.412 Cutaneous abscess of left axilla (principal); F15.90 Other stimulant use, unspecified, uncomplicated; Z98.891 History of uterine scar from previous surgery; Z98.51 Tubal ligation status; Z79.899 Other long term (current) drug therapy
CPT/HCPCS: 10060; 76882; 99284

== ENCOUNTER 2021-01-27 16:41 | Emergency (ER) | payer MEDICAID ==
[~2021-01-27] VITALS: Ht 170.2 cm; Wt 143.0 kg
--- NOTE | 2021-01-27 16:54 | NUR ---
Signed in with registration and immediately began swearing and storming around waiting room, left prior to triage. Addendum: 01/28/21 at 1621 by TARAH PT SLEEPING QUIETLY, NO S/S OF DISTRESS NOTED
--- NOTE | 2021-01-27 17:52 | NUR ---
Pt brought back to ER overflow directly from triage and placed in bed 20. Pt placed in green scrubs and belongings inventoried. Pt tearful and having outbursts at times. Currently crying in bed lying down.
[2021-01-27] MEDS ORDERED: hydrOXYzine 25 MG tablet PO ONE (18:00)
[2021-01-27 18:23] LABS: BASOPHILS # (AUTO) 0.1 X10'3 (0-0.2); BASOPHILS % (AUTO) 0.8 % (0-1); EOSINOPHILS # (AUTO) 0.3 X10'3 (0-0.9); EOSINOPHILS % (AUTO) 2.3 % (0-6); HEMATOCRIT 38.3 % (35.0-45.0); HEMOGLOBIN 12.1 g/dl (12.0-16.0); LYMPHOCYTES # (AUTO) 2.8 X10'3 (1.1-4.8); MEAN CORPUSCULAR HEMOGLOBIN 27.3 PG (27.0-31.0); MEAN CORPUSCULAR HGB CONC 31.7 g/dL (33.0-36.5); MEAN CORPUSCULAR VOLUME 86.1 FL (78-98); MEAN PLATELET VOLUME 7.6 FL (7.4-10.4); MONOCYTES # (AUTO) 0.7 X10'3 (0-0.9); MONOCYTES % (AUTO) 5.7 % (2-12); NEUTROPHILS # (AUTO) 8.9 X10'3 (1.8-7.7); NEUTROPHILS % (AUTO) 69.2 % (42-75); PLATELET COUNT 375 X10'3 (140-440); RED BLOOD COUNT 4.44 X10'6 (4.20-5.60); RED CELL DISTRIBUTION WIDTH 15.4 % (11.5-14.5); WHITE BLOOD COUNT 12.8 X10'3 (4.5-11.0)
[2021-01-27 18:48] LABS: ALANINE AMINOTRANSFERASE 25 U/L (12-78); ALBUMIN/GLOBULIN RATIO 0.7 (1.1-1.5); ALKALINE PHOSPHATASE 98 IU/L (46-116); ANION GAP 6 (8-16); ASPARTATE AMINO TRANSFERASE 13 U/L (10-37); BILIRUBIN,TOTAL 0.2 MG/DL (0.1-1.0); BLOOD UREA NITROGEN 7 MG/DL (7-18); BUN/CREATININE RATIO 8.4 (6.6-38.0); CALCIUM 9.2 MG/DL (8.5-10.1); CHLORIDE 104 MMOL/L (99-107); CREATININE 0.83 MG/DL (0.40-0.90); GLUCOSE 98 MG/DL (70-104); SODIUM 140 MMOL/L (135-145); TOTAL PROTEIN 7.6 G/DL (6.4-8.2); eGFR 78 ML/MIN
[2021-01-27 18:57] LABS: ETHANOL < 0.010 GM/DL (0.0-0.010)
--- NOTE | 2021-01-27 19:10 | NUR ---
Pt awakened crying and in tears. Nurse gave ONE time med order to assist pt in rest. Pt unable to be assessed; pt gives inappropriate answers with mumbling and crying. Water given to pt and pt has calmly returned back to sleep.
--- NOTE | 2021-01-27 20:25 | NUR ---
Pt admitted to pior suicide attempts, but stated "I don't want to talk about it." Pt denies any current SI or acitve plan. Pt admitted to smoking a pack of cigarettes a day and also admitted to smoking salt. Pt was unable to specify what kind of salt. UA tox screen pending.
--- NOTE | 2021-01-27 20:43 | NUR ---
BREAKING PRIMARY RN; WILL CONT TO MONITOR.
[2021-01-27 21:01] LABS: CLARITY,URINE CLEAR (Clear); COLOR,URINE YELLOW (Yellow); GLUCOSE, URINE NEGATIVE (Neg); KETONES,URINE NEGATIVE (Neg); LEUKOCYTE ESTERASE ,URINE NEGATIVE (Neg); NITRITES, URINE NEGATIVE (Neg); OCCULT BLOOD,URINE NEGATIVE (Neg); PH,URINE 6.5 (4.8-8.0); PROTEIN,URINE NEGATIVE (Neg); UROBILINOGEN,URINE 0.2 E.U/dL (0.2-1.0)
[2021-01-27 21:03] LABS: URINE AMPHETAMINE SCREEN POSITIVE (Neg); URINE BARBITUATE SCREEN NEGATIVE (Neg); URINE BENZODIAZEPINES SCREEN NEGATIVE (Neg); URINE CANNABINOID SCREEN NEGATIVE (Neg); URINE COCAINE SCREEN NEGATIVE (Neg); URINE HCG NEGATIVE (NEG); URINE METHADONE SCREEN NEGATIVE (Neg); URINE OPIATE SCREEN NEGATIVE (Neg); URINE PHENCYCLIDINE SCREEN NEGATIVE (Neg)
[2021-01-27 21:05] LABS: UA COLLECTION TYPE CLN CATCH MIDSTREAM
--- NOTE | 2021-01-28 03:26 | NUR ---
BREAKING PRIMARY RN, WILL CONT TO MONITOR
--- NOTE | 2021-01-28 11:44 | NUR ---
PT IS AWAKE, UP TO BATHROOM AND EATING BREAKFAST
--- NOTE | 2021-01-29 06:43 | NUR ---
Patient sleeping on right side. No distress observed. Continue to monitor.
--- NOTE | 2021-01-29 08:20 | NUR ---
Patient did not want to eat her breakfast. Continue to monitor.
--- NOTE | 2021-01-29 08:45 | NUR ---
Dimas BERNAL, evaluating patient. Patient is not being very cooperative. Continue to monitor.
--- NOTE | 2021-01-29 08:47 | NUR ---
Patient states she lives in her car.
--- NOTE | 2021-01-29 08:53 | NUR ---
Patient screaming at staff and patients and called patient "Nigers". Patient very agitated and security called in. Continue to monitor.
[2021-01-29] MEDS ORDERED: MIDAZolam 5mg/ml 2ml vial IM ONE (08:55)
--- NOTE | 2021-01-29 09:25 | NUR ---
Patient given 5 mg Versed earlier which patient allowed RN to give in right arm. Security at side. Patient is now sleeping supine. No distress observed. Continue to monitor.
--- NOTE | 2021-01-29 10:20 | NUR ---
Dimas BERNAL, was unable to continue with patient's eval for 5150 due to agitation/anger/psychosis. Patient is now sleeping supine. No distress observed. Continue to monitor.
--- NOTE | 2021-01-29 11:17 | NUR ---
Patient sleeping soundly as RN can hear her breathing. Continue to monitor.
--- NOTE | 2021-01-29 13:26 | NUR ---
Patient got up to the BR then back to bed. No distress observed. Continue to monitor.
--- NOTE | 2021-01-29 15:03 | NUR ---
Patient sitting up and eating lunch. Patient asked the date and time. No distress observed. Continue to monitor.
--- NOTE | 2021-01-29 16:57 | NUR ---
Patient sleeping on left side. No distress observed. Patient is still pending eval by [facility]. Continue to monitor.
[2021-01-29] MEDS ORDERED: QUEtiapine 25mg tablet PO STA (18:13)
--- NOTE | 2021-01-29 18:16 | NUR ---
The patient is agitated and yelling profanities at a peer. Discussed the patient with Dr. Gupta and orders received
[2021-01-29] MEDS ORDERED: QUEtiapine 25mg tablet PO ONE (18:20)
[2021-01-29] MEDS ORDERED: quetiapine 100mg tablet PO ONE (18:20)
--- NOTE | 2021-01-29 18:49 | NUR ---
The patient took po seroquel but she was very labile and emotional at presently is crying. Attempting to decrease the stimuli on the unit.
--- NOTE | 2021-01-29 20:42 | NUR ---
The patient appears to be sleeping
[2021-01-29] MEDS ORDERED: QUEtiapine 25mg tablet PO SCH (21:00)
--- NOTE | 2021-01-29 21:44 | NUR ---
The patient appears to be sleeping
--- NOTE | 2021-01-29 23:58 | NUR ---
The patient has appeared to be sleeping. She at times is talking in her sleep
--- NOTE | 2021-01-30 02:14 | NUR ---
The patient appears to be sleeping well but was up to use the bathroom once
--- NOTE | 2021-01-30 04:03 | NUR ---
The patient appears to be sleeping well
[2021-01-30 05:25] VITALS: BP 122/65
--- NOTE | 2021-01-30 06:34 | NUR ---
Patient sleeping on right side. No distress observed. Continue to monitor.
--- NOTE | 2021-01-30 07:40 | NUR ---
Patient is sleeping supine and snoring. No distress observed at this time. Continue to monitor.
[2021-01-30] MEDS: quetiapine 100mg tablet PO SCH ×3 (08:56→13:53)
[2021-01-30] MEDS: QUEtiapine 25mg tablet PO SCH ×3 (08:56→13:53)
--- NOTE | 2021-01-30 09:05 | NUR ---
Patient sitting up and eating lunch. No distress observed. Continue to monitor.
--- NOTE | 2021-01-30 11:20 | NUR ---
Patient sleeping on right side. No distress observed. Continue to monitor.
--- NOTE | 2021-01-30 11:50 | NUR ---
Charge nurse from [facility] came to nurses station and was chatting with this RN. Patient yelled out "Stop f*cking talking about me!". Patient agitated but then calmed down. Continue to monitor.
--- NOTE | 2021-01-30 13:05 | NUR ---
Patient sitting up and eating lunch. No distress observed. Continue to monitor.
[2021-01-30] MEDS ORDERED: paliperidone palmitate 156 mg/ml inj.**IM only IM ONE (13:45)
[2021-01-30] MEDS ORDERED: paliperidone palmitate inj 234 MG/1.5 ML SYRINGE IM ONE (13:50)
== END 2021-01-30 15:01 ==
LOC: ER 16:42
DX: R45.851 Suicidal ideations (principal); R45.850 Homicidal ideations; R44.0 Auditory hallucinations; F41.9 Anxiety disorder, unspecified; F31.9 Bipolar disorder, unspecified; F15.90 Other stimulant use, unspecified, uncomplicated; Z98.51 Tubal ligation status; Z98.890 Other specified postprocedural states; Z79.899 Other long term (current) drug therapy
CPT/HCPCS: 36415; 80053; 80305; 80320; 81003; 81025; 84443; 85025; 96372; 99285; Q0177

== ENCOUNTER 2021-09-28 00:52 | Emergency (ER) | payer OTHER ==
[~2021-09-28] VITALS: Ht 170.2 cm; Wt 100.0 kg
[~2021-09-28 00:52] MED LIST changes: +IBUP-1984 PO; -QUET100T33 PO; +QUET100T34 PO
[2021-09-28 01:03] VITALS: BP 184/93
[2021-09-28] MEDS ORDERED: HYDROcodone/acetaminophen 5mg/325mg tablet PO ONE (02:10)
--- NOTE | 2021-09-28 05:36 | NUR ---
PT WAS BROUGHT BACK TO BED 19 FOR EVALUATION WITH . MD FOUND PT APPROPRIATE FOR DISCHARGE. UPON ENTERING ROOM TO MEDICATE PT SHE BEGAN DEMANDING AN AMBULANCE TO [facility] FOR A SECON OPINION ON THE XRAYS. PT CONTINUED TO DEMAND AND NOT LISTEN TO REASON THAT WE DONT DO THAT. PT WAS ESCORTED OUT BY STAFF AFTER REFUSING CARE. PT SCREAMING SHE LEFT, "I CAN'T BELIEVE YOU'RE REFUSING MY PARENTAL RIGHTS!"
== END 2021-09-28 06:00 | disposition home or self-care (01) ==
LOC: MERGE 00:53 → ER 00:53
DX: R07.81 Pleurodynia (principal); F31.9 Bipolar disorder, unspecified
CPT/HCPCS: 36415; 71046; 84484; 93005; 99285

== ENCOUNTER 2021-10-29 01:37 | Emergency (ER) | payer MEDICAID ==
[~2021-10-29] VITALS: Ht 177.8 cm; Wt 115.9 kg
[~2021-10-29 01:37] MED LIST changes: -IBUP-1984 PO
[2021-10-29 02:15] VITALS: BP 146/80
[2021-10-29] MEDS ORDERED: LORazepam 1 MG tablet PO ONE (02:50)
== END 2021-10-29 04:45 ==
LOC: ER 01:37
DX: R45.1 Restlessness and agitation (principal); R44.1 Visual hallucinations; F41.9 Anxiety disorder, unspecified; F31.9 Bipolar disorder, unspecified; F15.90 Other stimulant use, unspecified, uncomplicated; Z98.51 Tubal ligation status; Z79.899 Other long term (current) drug therapy
CPT/HCPCS: 99283

== ENCOUNTER 2023-01-25 15:29 | Emergency (ER) | payer MEDICAID ==
[~2023-01-25] VITALS: Ht 165.1 cm; Wt 95.0 kg
[~2023-01-25 15:29] MED LIST changes: +ALBU6.7H14 INH; -ALBU6.7H9 INH
[2023-01-25 15:47] VITALS: BP 115/79
--- NOTE | 2023-01-25 16:23 | NUR ---
Pt is requesting a medication dose/ medication change. Pt states that she was started on Lamictal by [facility] 2 weeks ago. She states that she is hearing auditory hallucinations of "people that are not there." Pt states that she does not have SI/HI but states "Ill say I am if I want to stay for a 72 hour hold."
[2023-01-25] MEDS ORDERED: OLANZapine 2.5MG tablet PO STA (16:58)
[2023-01-25] MEDS ORDERED: OLAN5TAB3 PO (17:02)
== END 2023-01-25 17:22 | disposition home or self-care (01) ==
LOC: ER 15:30
DX: R44.0 Auditory hallucinations (principal); F31.9 Bipolar disorder, unspecified; F15.10 Other stimulant abuse, uncomplicated; Z79.899 Other long term (current) drug therapy; Z79.1 Long term (current) use of non-steroidal anti-inflammatories (NSAID); Z79.2 Long term (current) use of antibiotics
CPT/HCPCS: 99283

== ENCOUNTER 2023-02-04 17:55 | Emergency (ER) | payer MEDICAID ==
[~2023-02-04 17:55] MED LIST changes: +OLAN5TAB3 PO
== END 2023-02-04 22:00 | disposition left against medical advice (07) ==
LOC: ER 17:57
DX: Z76.0 Encounter for issue of repeat prescription (principal); Z53.21 Procedure and treatment not carried out due to patient leaving prior to being seen by health care provider

== ENCOUNTER 2023-03-08 13:58 | Outpatient (CLI) | payer MEDICAID | END 2023-03-08 23:59 | disposition home or self-care (01) | LOC: RAD 13:58 | PROVIDERS: ATTEND Nurse Practitioner Psychiatric/Mental Health | DX: Z79.899 Other long term (current) drug therapy (principal) | CPT/HCPCS: 93005 ==

== ENCOUNTER 2024-02-28 19:02 | Emergency (ER) | payer MEDICAID ==
[~2024-02-28] VITALS: Ht 170.2 cm; Wt 104.5 kg
[2024-02-28] MEDS: normal saline 1000ML IV soln IVB ONE (20:15)
[2024-02-28] MEDS: morphine 4 MG/ML inj SYRINge IV ONE (20:15)
[2024-02-28] MEDS: ondansetron/PF 4mg/2ml inj IV ONE (20:15)
[2024-02-28] MEDS: TETanus/Pertussis (Acell)/Diphther VAC/PF (Tdap-Adult) 0.5ml syringe IMVAC ONE (20:16)
[2024-02-28] MEDS: ceFAZolin/D5W- 1GM premix 50 ML IV SCH (20:21)
[2024-02-28 20:26] LABS: URINE HCG NEGATIVE (NEG)
[2024-02-28 20:31] LABS: BASOPHILS # (AUTO) 0.1 X10'3 (0-0.2); BASOPHILS % (AUTO) 0.4 % (0-1); EOSINOPHILS # (AUTO) 0.1 X10'3 (0-0.9); EOSINOPHILS % (AUTO) 0.3 % (0-6); HEMATOCRIT 41.6 % (35.0-45.0); HEMOGLOBIN 13.8 g/dl (12.0-16.0); LYMPHOCYTES % (AUTO) 11.1 % (21-51); MEAN CORPUSCULAR HEMOGLOBIN 29.7 PG (27.0-31.0); MEAN CORPUSCULAR HGB CONC 33.1 g/dL (33.0-36.5); MEAN CORPUSCULAR VOLUME 89.6 FL (78-98); MONOCYTES # (AUTO) 1.7 X10'3 (0-0.9); MONOCYTES % (AUTO) 6.4 % (2-12); NEUTROPHILS # (AUTO) 21.8 X10'3 (1.8-7.7); NEUTROPHILS % (AUTO) 81.8 % (42-75); PLATELET COUNT 379 X10'3 (140-440); RED BLOOD COUNT 4.64 X10'6 (4.20-5.60); RED CELL DISTRIBUTION WIDTH 14.3 % (11.5-14.5)
[2024-02-28 20:34] LABS: WHITE BLOOD COUNT 26.6 X10'3 (4.5-11.0)
[2024-02-28 20:50] LABS: URINE AMPHETAMINE SCREEN POSITIVE (Neg); URINE BARBITUATE SCREEN NEGATIVE (Neg); URINE BENZODIAZEPINES SCREEN NEGATIVE (Neg); URINE CANNABINOID SCREEN NEGATIVE (Neg); URINE COCAINE SCREEN NEGATIVE (Neg); URINE METHADONE SCREEN NEGATIVE (Neg); URINE OPIATE SCREEN NEGATIVE (Neg); URINE PHENCYCLIDINE SCREEN NEGATIVE (Neg)
[2024-02-28 20:51] LABS: ALANINE AMINOTRANSFERASE 23 U/L (12-78); ALBUMIN 3.6 G/DL (3.4-5.0); ALBUMIN/GLOBULIN RATIO 0.9 (1.1-1.5); ALKALINE PHOSPHATASE 86 IU/L (46-116); ANION GAP 10 (8-16); ASPARTATE AMINO TRANSFERASE 21 U/L (10-37); BILIRUBIN,DIRECT 0.2 MG/DL (0-0.3); BILIRUBIN,TOTAL 0.7 MG/DL (0.1-1.0); BLOOD UREA NITROGEN 15 MG/DL (7-18); BUN/CREATININE RATIO 17.2 (10.0-20.0); CALCIUM 8.6 MG/DL (8.5-10.1); CHLORIDE 99 MMOL/L (99-107); CREATININE 0.87 MG/DL (0.40-0.90); ETHANOL < 10 MG/DL (<10); GLUCOSE 99 MG/DL (70-104); MAGNESIUM 2.4 MG/DL (1.5-2.4); POTASSIUM 3.4 MMOL/L (3.5-5.1); SODIUM 134 MMOL/L (135-145); TOTAL CARBON DIOXIDE 25.4 MMOL/L (24-32); TOTAL PROTEIN 7.8 G/DL (6.4-8.2); eCRCL 84 ML/MIN; eGFR 72 ML/MIN
[2024-02-28 20:54] LABS: PLATELET ESTIMATE NORMAL; TOTAL CELLS COUNTED 100
[2024-02-28 21:33] VITALS: BP 143/85; PULSE 67; RESP 18; TEMP 98; O2SAT 98
[2024-02-28] MEDS: bacitracin 15gm ointment TP ONE (22:09)
[2024-02-29] MEDS ORDERED: bacitracin 15gm ointment TP SCH (08:00)
== END 2024-02-28 21:51 ==
LOC: ER 19:03
DX: T25.222A Burn of second degree of left foot, initial encounter (principal); T25.221A Burn of second degree of right foot, initial encounter; F41.9 Anxiety disorder, unspecified; F15.90 Other stimulant use, unspecified, uncomplicated; F32.A Depression, unspecified; Z98.51 Tubal ligation status; X08.8XXA Exposure to other specified smoke, fire and flames, initial encounter; Y93.89 Activity, other specified; Y92.009 Unspecified place in unspecified non-institutional (private) residence as the place of occurrence of the external cause; Y99.8 Other external cause status
CPT/HCPCS: 16000; 36415; 80048; 80076; 80305; 80320; 81025; 83735; 85007; 85025; 90471; 90715; 96365; 96375; 99285; A6223; J0690; J2270; J2405; J7030; 96361; A6446